=== PATIENT | female | born 1980 | race Caucasian/White ===

== ENCOUNTER 2021-07-01 03:17 | Emergency (ER) | payer OTHER ==
[2021-07-01] MEDS ORDERED: PERCOCET 5/325 T1 EA PO (04:38)
[2021-07-01] MEDS ORDERED: AMOXICILLIN250 MG PO (04:38)
== END 2021-07-01 04:58 | disposition home or self-care (01) ==
LOC: ER1 03:17
DX: K04.7 Periapical abscess without sinus (principal); F17.200 Nicotine dependence, unspecified, uncomplicated
CPT/HCPCS: 99282